=== PATIENT | female | born 1950 | race Caucasian/White ===

== ENCOUNTER 2023-10-18 10:51 | Emergency (ER) | payer MEDICARE, OTHER, SELFPAY ==
[2023-10-18 11:08] VITALS: BP 166/109
[2023-10-18 11:40] LABS: % Basophils 0.3 % (0-2); % Eosinophils 0.3 % (0-6); % Immature Granulocytes 0.4 % (0-0.5); % Lymphocytes 25.6 % (20.5-51.1); % Monocytes 8.5 % (1.7-9.3); % Neutrophils 64.9 % (42.2-75.2); Absolute Lymphocytes 1.8 10^3/uL (1.2-3.4); Absolute Monocytes 0.6 10^3/uL (0.1-0.6); Absolute Neutrophils 4.7 10^3/uL (1.4-6.5); Hemoglobin 13.2 g/dL (12.0-16.0); Mean Corp Hgb Conc. 34.7 g/dL (33.0-37.0); Mean Corpuscular Hgb 29.7 pg (27.0-31.0); Mean Corpuscular Volume 85.4 fL (81.0-99.0); Mean Platelet Volume 9.9 fL (7.4-10.4); Nucleated Red Blood Cells % 0 %; Platelet Count 275 10^3/uL (130-400); Red Blood Cell Count 4.45 10^6/uL (4.20-5.40); Red Cell Dist. Width 13.1 % (11.5-14.5); White Blood Cell Count 7.2 10^3/uL (4.8-10.8)
[2023-10-18 11:55] LABS: ALT (SGPT) 24 U/L (0-35); AST (SGOT) 26 U/L (14-36); Albumin 4.6 g/dl (3.5-5.0); Alkaline Phosphatase 81 U/L (38-126); Blood Urea Nitrogen 13 mg/dl (7-17); Calcium 9.5 mg/dl (8.4-10.2); Carbon Dioxide 26 mmol/L (22-30); Chloride 97 mmol/L (98-107); Glucose 121 mg/dl (70-99); Potassium 4.6 mmol/L (3.5-5.1); Sodium 133 mmol/L (135-145); Total Bilirubin 0.7 mg/dl (0.2-1.3); Total Protein 7.7 g/dl (6.3-8.2); eGFR > 60.00
--- NOTE | 2023-10-18 12:52 | ED.GENMED ---
History of Present Illness
General
Chief Complaint: Rectal Bleeding
Source: patient
Exam Limitations: none
Time Seen by Provider: 10/18/23 12:30
Nursing documentation reviewed up to this point in time: agreed with
Travel History
Have you had any contact with someone who has COVID-19?: No
Do you have any symptoms of coronavirus? Fever > 100 degrees, chills, cough, shortness of breath, sore throat, loss of taste or smell, muscle aches, or headache?: No
History of Present Illness
History of Present Illness:
pt is a 73 y/o F with h/o hemorrhoids, had banding by a [facility] 9 years ago
has chronic internal and some external hemorrhoids
about a week ago started having some trace bleeding on toilet paper after BM
but then the past few days has been a little more on the tissue, still nothing in the toilet
until today at 8 am pt had a bowel movement which was not overly difficult but she did sit on the toilet for several minutes and says that it is always a little bit difficult to pass her stools
, And she is still a large amount of blood in the toilet. She did not notice any clots. The blood was red and she had blood on the toilet paper. She has not had any residual bleeding since that episode, she denies any abdominal pain, fever,
lightheadedness, rectal pain, history of diverticulosis, blood thinner use. Patient said that few days ago she called to make an appointment with her GI and they could not get her in for another month. She is not sure what to do, she has never had
that large of a bleeding episode before. She otherwise feels well now. She has been taking MiraLAX once at night daily, she has a history of chronic constipation and this seems to help her but she does not use a stool softener. She did use 1
phenylephrine suppository this morning after this episode. She has not had a bowel movement since. She is wearing a pad which is not soiled. She has a history of whitecoat syndrome and chronically is having elevated blood pressure readings in her
doctor office visits. When she takes it at home her blood pressure is usually 130/80. She has no symptoms of her hypertension now but she does feel anxious
Past History
Past History
ED Past Medical History: Hypothyroidism and Other (Whitecoat syndrome)
ED Past Surgical History: Other (Internal hemorrhoidal banding)
Social History
Tobacco: Non-smoker
Alcohol: None
Drug: None
Personal:
Living: with family
Review of Systems
Review of Systems
Allergies reviewed?: Yes
All Other Systems: Not applicable
Phy Exam
Physical Exam
Physical Exam:
GENERAL: Alert , in no apparent distress
EYE: pupils equal and reactive
NECK: Supple
ENT: o/p clr, mmm.
CARDIAC: Regular rate and rhythm .
LUNGS: Clear breath sounds bilaterally, no acute respiratory distress, no wheezes/rales/rhonchi
ABDOMEN: Soft, without focal tenderness, no r/g, no cvat, normal bowel sounds
Patient has several external hemorrhoids which are none thrombosed, not bleeding, nontender, her digital rectal exam had brown stool without any blood, her stool was heme-negative, there is no palpated obvious internal hemorrhoids
NEUROLOGICAL: Alert and oriented, no focal neuro deficits
SKIN: Warm and dry, skin intact.
PSYCH: Normal and appropriate interaction. Mildly anxious
Course
Orders/Labs/Results
Orders:
Orders
10/18/23 11:15
Type+Screen Urgent
Complete Blood Count/With Diff Urgent
Comprehensive Metabolic Panel Urgent
Abnormal Lab Results
10/18/23
11:15
Sodium 133 L mmol/L
(135-145)
Chloride 97 L mmol/L
(98-107)
Glucose 121 H mg/dl
(70-99)
10/18/23 11:15
10/18/23 11:15
Vital Signs
Initial and Last Documented VS:
Initial Vital Signs
Temp Pulse Resp BP Pulse Ox
98.1 F 106 18 166/109 98
10/18/23 11:08 10/18/23 11:08 10/18/23 11:08 10/18/23 11:08 10/18/23 11:08
Last Documented Vital Signs
Temp Pulse Resp BP Pulse Ox
98.1 F 106 18 166/109 98
10/18/23 11:08 10/18/23 11:08 10/18/23 11:08 10/18/23 11:08 10/18/23 11:08
MDM/Problems Addressed
Differential Diagnosis Includes:
Hemorrhoidal bleeding, diverticular bleeding, colon polyps
MDM/Problems Addressed:
73-year-old female with a history of whitecoat syndrome, not on blood pressure medication presents for rectal bleeding over the last several days with stools. Patient says she normally moves her bowels at least once, most of the time twice a day.
She uses MiraLAX at night before bed because of chronic constipation. Previously about 9 years ago she had banding of her internal hemorrhoids. She noticed some painless rectal bleeding after stools earlier this week and called and made an
appointment with her GI group but unfortunately is not able to be seen for another month. Today's episode was the largest coloring the water but without clots. She has not had any active bleeding and she is not anticoagulated. Patient is anxious
but otherwise well-appearing, she is hypertensive but this is chronic for her, her blood pressures in her primary care office are 200/100 but usually come down when she is home.
On exam she has no rectal bleeding, no blood in her vault, heme-negative brown stool, nontender abdomen. I feel that this is most likely internal hemorrhoids. In order to maximize her therapy would increase her MiraLAX twice a day so that she is
not having hard stools to hard to pass, add Metamucil once a day and phenylephrine suppositories twice a day for 3 to 5 days. I did call the office of Dr. gisela mccollum whom she had an appointment with. Apparently if the patient has not
been seen within 3 years they become a new patient which is why she has to wait another month. The staff member was able to move up her appointment to October 29.
Patient is aware of this she will return to the ER if she is having any worsening episodes or concerning symptoms before her appointment.
*Critical Care Note
Total Time (30-74mins, 75-104mins- exclusive of procedures): Not Applicable
ED Attending Note
-
Portions of this chart may have been created with voice recognition software.� Occasional wrong word or��sound alike� substitutions may have occurred due to the inherent limitations of voice recognition software.
Discharge Plan
Departure
Patient Disposition: Home (Routine Discharge)
Date of Disposition: 10/18/23
Time of Disposition: 13:15
Patient with high blood pressure during this ER visit?: Yes
Condition: Fair
Discharge Problem:
Rectal bleed, Elevated blood pressure reading
Instructions: Hemorrhoids (DC), BLOOD PRESSURE
Prescriptions:
No Action
acetaminophen [Tylenol Extra Strength] 500 mg Tablet
500 mg PO DAILYPRN PRN (Reason: mild pain)
simvastatin 40 mg Tablet
40 mg PO HS
levothyroxine 88 mcg Tablet
88 mcg PO DAILY
betamethasone dipropionate 0.05 % Cream
1 applic TOPICAL BID PRN (Reason: apply to rashes)
cholecalciferol (vitamin D3) 50 mcg (2,000 unit) Tablet
50 mcg PO QPM
Miralax
1 tsp PO HS
Referrals:
Star Waller MD [Family Provider] - Follow up in 5-7 days
Activity Restrictions/Additional Instructions:
You have an appointment with your GI doctor or office at 10:30 AM on October 29 at the [facility].
In the meantime you can take Metamucil once a day 1 tablespoon in 8 ounces of water for stool softening. You can use MiraLAX once or twice a day to keep your stools soft. You can use the phenylephrine suppository twice a day for the next 3 to 5
days in a row.
Your bleeding is probably from internal hemorrhoids. Your external hemorrhoids were not actively bleeding. Your hemoglobin was stable. Your blood pressure was very high but it sounds as if this is chronic for you when you are seen in your office
or hospital. Please be sure to retake at home and if this is persistently elevated you are to talk to your family doctor about starting medication. If you start having worsening episodes of bleeding, large-volume, abdominal pain, rectal pain,
fever or chills, lightheadedness or passing out you should come back to the ER immediately. Otherwise keep your appointment for October 29
Interventions
Interventions:
*Risk Screen - Suicide Last Done: 10/18/23 11:08
*General Assessment Last Done: 10/18/23 11:08
*Neglect/Abuse Screening Last Done: 10/18/23 11:08
*ED COVID-19 Vaccine History Last Done: 10/18/23 11:08
[2023-10-18 13:03] VITALS: BP 188/96
[2023-10-18 13:25] VITALS: BP 186/95
[2023-10-18 13:32] VITALS: BP 186/95
== END 2023-10-18 13:30 | disposition home or self-care (01) ==
LOC: EMR 10:51
PROVIDERS: Emergency Medicine; EMERGENCY PHYSICIAN Emergency Medicine; FAMILY PHYSICIAN Internal Medicine
DX: K62.5 Hemorrhage of anus and rectum (principal); R03.0 Elevated blood-pressure reading, without diagnosis of hypertension; E03.9 Hypothyroidism, unspecified; K59.09 Other constipation; Z87.19 Personal history of other diseases of the digestive system
CPT/HCPCS: 99283; 80053; 85025; 86850; 86900; 86901